=== PATIENT | male | born 1965 | race Caucasian/White ===

== ENCOUNTER 2020-09-03 17:13 | Emergency (ER) | payer OTHER, SELFPAY ==
--- NOTE | ~2020-09-03 | CT_ITS ---
EXAMINATION: CT ABDOMEN AND PELVIS WITHOUT CONTRAST CLINICAL INFORMATION: Right flank pain. History of kidney stones. COMPARISON: Previous CT of the abdomen and pelvis June 2006 TECHNIQUE: Multidetector volumetric imaging was performed from the superior aspect of the liver through the pubic symphysis. Sagittal and coronal reformatted images were obtained on the technologist's workstation. This CT examination was performed using dose optimization techniques as appropriate, variously including the following: *Automated exposure control *Adjustment of mA and/or kV according to patient size (this includes techniques or standardized protocols for targeted exams where dose is matched to indication/reason for exam; i.e. extremities or head) *Use of iterative reconstruction technique DLP: 1189 mGy-cm FINDINGS: LUNG BASES: The visualized lung bases are unremarkable. LIVER, GALLBLADDER, AND BILIARY TREE: The liver is low in attenuation suggestive of fatty infiltration. The liver appears cirrhotic with hypertrophy of the left lobe and caudate lobe and irregular contour. The gallbladder is slightly enlarged. No gallstones are seen. There is no biliary duct dilatation. There are varices. PANCREAS: Unremarkable. SPLEEN: Unremarkable. ADRENAL GLANDS: Unremarkable. KIDNEYS AND URETERS: The kidneys are normal in size, shape, and attenuation. No hydronephrosis, hydroureter, or calculi seen. No perinephric stranding. BLADDER: There may be mild diffuse bladder wall thickening. GASTROINTESTINAL TRACT: The small and large bowel are unremarkable. The appendix is unremarkable. ABDOMINAL WALL: There is an umbilical hernia containing fat and varices. LYMPH NODES: Normal. VASCULAR: Unremarkable. PELVIC VISCERA: Unremarkable. OSSEOUS STRUCTURES: There are degenerative changes of the spine. There is ankylosis the L4-L5 disc space. CT/CT abdomen pelvis wo con IMPRESSION: Fatty liver and changes of cirrhosis. Varices. Slightly dilated gallbladder. No gallstone seen. If there is clinical concern of cholecystitis, ultrasound or HIDA scan would be recommended. No stone seen.
[2020-09-03 18:02] VITALS: BP 136/76; PULSE 89; RESP 18; TEMP 36.7; O2SAT 95; BMI 42.3
[2020-09-03 18:54] LABS: Hemoglobin 13.6 g/dl (14.0-18.0); Mean Corpuscular Hemoglobin 30.7 pg (27.0-33.0); Mean Corpuscular Volume 90.3 fL (80-98); Mean Platelet Volume 9.6 fL (9.4-12.4); Platelet Count 106 X10*3/uL (160-400); Red Blood Count 4.43 X10*6/uL (4.60-5.80); Red Cell Distribution Width 12.7 % (11.0-16.0); White Blood Count 6.7 X10*3/uL (4.8-10.8)
--- NOTE | 2020-09-03 19:00 | ED_ITS ---
HPI - Abdominal Pain General Chief Complaint: Abdominal Pain Stated Complaint: Lower back pain Time Seen by Provider: 09/03/20 18:59 Source: patient Mode of arrival: ambulatory Limitations: no limitations History of Present Illness HPI narrative: patient history of kidney stone more than 5 years ago noticed pain in the right flank for last 1 week constant pain with intermittent worsening pain sharp in character radiating to right lower back no abdominal pain no testicular pain no hematuria no fever or chills no nausea vomiting no diarrhea patient does have chronic back problems he did not do any strenuous act ivity Related Data Previous Rx's Medication Instructions Recorded cyclobenzaprine 10 mg PO Q8H #20 tab 09/03/20 oxycodone 5 mg PO Q6H PRN #20 tab 09/03/20 Allergies Allergy/AdvReac Type Severity Reaction Status Date / Time morphine [MORPHINE] Allergy Unknown HIVES Unverified 11/21/19 15:13 Review of Systems Review of Systems Constitutional : No Weight loss, No Fever, No Chills ENT/Mouth : No sore throat, No Rhinorrhea Eyes: No Eye Pain, No Swelling Cardiovascular : No Chest Pain, no palpitations Respiratory : No Cough, No Sputum, no shortness of breath Gastrointestinal : no Nausea, No Vomiting, No Diarrhea, No abdominal Pain, no black stools Genitourinary : No Dysuria, No Urinary Frequency Musculoskeletal : No joint pain, No Myalgias, No Joint Swelling Skin : No Skin Lesions, No rash Neuro : No Weakness, No Numbness, No Dizziness, No Headache Psych : No Anxiety/Panic, No Depression Heme/Lymph: No Bruising, No Lymphadenopathy Endocrine : No Polyuria, No Polydipsia All other systems reviewed and are negative Physical Exam Vital Signs: Vital Signs: Last Vital Signs Temp 98.1 F 09/03/20 18:02 Pulse 89 09/03/20 18:02 Resp 18 09/03/20 18:02 BP 136/76 09/03/20 18:02 Pulse Ox 95 09/03/20 18:02 Body Mass Index 42.3 Appearance: Alert. Oriented X3. No acute distress. Eyes: PERRLA, No Nystagmus ENT: Pharynx normal. Oral Mucosa moist Neck: Normal inspection. Neck supple. CVS: Normal heart rate and rhythm. Pulses normal. Respiratory: No respiratory distress. Equal air entry bilateral, no wheezing/rales/rhonchi Abdomen: Soft and nontender. tenderness in the right flank area no focal spinal tenderness Bowel sounds are present, no mass palpable,R CVA tenderness+ Back: diffuse lumbar spine tenderness no focal point tenderness SLR negative bilateral Skin: Skin warm and dry. Normal skin color. Normal skin turgor. Extremities: No lower extremity edema. No calf tenderness Neuro: Oriented X 3. No motor deficit. No sensory deficit.No cerebellar signs , cranial nerves II-XII intact MDM - Abdominal Pain MDM Narrative Medical decision making narrative: patient with right flank pain workup is negative for any kidney stone CT scan negative labs are stable pain likely musculoskeletal radiating from chronic low back pain Lab Data Attestation: I reviewed the patient's lab results. Result diagrams: 09/03/20 18:45 09/03/20 18:45 Labs: Lab Results 09/03/20 09/03/20 09/03/20 Range/Units 18:45 18:45 19:36 WBC 6.7 (4.8-10.8) X10*3/uL RBC 4.43 L (4.60-5.80) X10*6/uL Hgb 13.6 L (14.0-18.0) g/dl Hct 40.0 L (42-52) % MCV 90.3 (80-98) fL MCH 30.7 (27.0-33.0) pg MCHC 34.0 (31.0-36.0) g/dl RDW 12.7 (11.0-16.0) % Plt Count 106 L (160-400) X10*3/uL MPV 9.6 (9.4-12.4) fL Absolute Nucleated RBC 0.000 (0.0-0.012) X10*3/uL Nucleated RBC % (auto) 0.0 (0.0-0.2) /100WBC Sodium 136 (135-145) mmol/L Potassium 4.2 (3.3-5.1) mmol/L Chloride 101 (96-108) mmol/L Carbon Dioxide 24 (22-29) mmol/L Anion Gap 15 (12-20) BUN 6 L (9-16) mg/dL Creatinine 0.85 (0.5-1.4) mg/dL Estim Creat Clear Calc 155.2 Estimated GFR > 60 Random Glucose 93 (60-115) mg/dL Calcium 9.2 (8.4-10.2) mg/dL Urine Color YELLOW Urine Appearance CLEAR Urine pH 6.0 (5.0-8.0) Ur Specific [place] <= 1.005 (1.005-1.025) Urine Protein NEG (NEG-TRACE) MG/DL Urine Glucose (UA) NEG (NEG) MG/DL Urine Ketones NEG (NEG) MG/DL Urine Blood TRACE (NEG) Urine Nitrite NEG (NEG) Ur Leukocyte Esterase TRACE H (NEG) Urine RBC 1-4 (0) /HPF Urine WBC 5-9 H (0-4) /HPF Ur Squamous Epith Cells NONE /LPF Urine Bacteria TRACE /LPF Discharge Plan Discharge Clinical Impression: Back pain Patient Disposition: Home, Self-Care Instructions: Back Pain (ED) Additional Instructions: take pain medication and muscle relaxant as advised. bala do not have any kidney stone. Report to ER if any worsening of pain Prescriptions: New cyclobenzaprine 10 mg tablet 10 mg PO Q8H Qty: 20 RF: 0 oxycodone 5 mg tablet 5 mg PO Q6H PRN (Reason: Pain (Scale Score 7-10)) Qty: 20 RF: 0 Interventions: ED Discharge Assessment Last Done: 09/03/20 21:14 Discharge Date/Time: 09/03/20 21:00 [facility] Past Medical History Medical History Kidney stones Surgical History H/O neck surgery History of bilateral knee replacement Social History Social History Patient Tobacco Use Status: Never used Tobacco Use of substances other than those prescribed or required for medical reasons: No Advance Directives: No Advance Directives Information Provided: Yes
[2020-09-03 19:19] LABS: Anion Gap 15 (12-20); Blood Urea Nitrogen 6 mg/dL (9-16); Calcium 9.2 mg/dL (8.4-10.2); Carbon Dioxide 24 mmol/L (22-29); Chloride 101 mmol/L (96-108); Creatinine Clr Calc Pharmacy 155.2; Estimated Glomerular Filt Rate > 60; Glucose Random 93 mg/dL (60-115); Potassium 4.2 mmol/L (3.3-5.1); Sodium 136 mmol/L (135-145)
[2020-09-03 19:51] LABS: Glucose Urine UA NEG (NEG); Leukocyte Esterase Urine TRACE (NEG); Nitrite Urine NEG (NEG); Specific Gravity - Urine <= 1.005 (1.005-1.025); UACC Culture Trigger YES; Urine Blood TRACE (NEG); Urine Ketones NEG (NEG); Urine Protein NEG (NEG-TRACE)
[2020-09-03] MEDS: 0.9 % Sodium Chloride 1,000 ML 999 ML IVCONT (19:54)
[2020-09-03] MEDS: Ketorolac Tromethamine 30 MG/ML VIAL IVPUSH (19:54)
[2020-09-03 19:56] LABS: Appearance Urine CLEAR; Color Urine YELLOW
[2020-09-03 20:04] LABS: Bacteria Urine TRACE /LPF
[2020-09-03] MEDS: Cyclobenzaprine HCl 10 MG TABLET PO (21:05)
[2020-09-03] MEDS: oxyCODONE HCl Immed Release 5 MG TABLET 10 MG PO (21:05)
== END 2020-09-03 21:00 | disposition home or self-care (01) ==
PROVIDERS: Emergency Provider Internal Medicine
DX: M54.5 Low back pain (principal); Z87.442 Personal history of urinary calculi
CPT/HCPCS: 36415; 74176; 80048; 81001; 81003; 85027; 87086; 96361; 96374; 99284; J1885

== ENCOUNTER 2021-05-03 11:44 | Emergency (ER) | payer OTHER, SELFPAY ==
--- NOTE | ~2021-05-03 | CT_ITS ---
EXAMINATION: CT ANGIOGRAM CHEST CLINICAL INFORMATION: Chest pain COMPARISON: Chest x-ray 04/25/2021 TECHNIQUE: Multiple axial images were obtained through the chest after the administration of 70 mL of Omnipaque 350 intravenous contrast. Extensive vascular post-processing including two-dimensional and three-dimensional reformatted images were created and reviewed on an independent workstation. This CT examination was performed using dose optimization techniques as appropriate, variously including the following: *Automated exposure control *Adjustment of mA and/or kV according to patient size (this includes techniques or standardized protocols for targeted exams where dose is matched to indication/reason for exam; i.e. extremities or head) *Use of iterative reconstruction technique DLP: 547 mGy-cm FINDINGS: Vascular: There is good opacification of pulmonary artery and its branches without any intraluminal filling defect or narrowing. The thoracic aorta is of normal caliber. There is normal three-vessel branching of the aortic arch. Mediastinum: The thyroid lobes are symmetrical and normal. No abnormal size mediastinal mass or lymphadenopathy seen. There is no pericardial effusion. There is trace coronary artery calcifications present. Central trachea and the bronchi widely patent. No abnormal size mediastinal or hilar lymph nodes seen. LUNGS: Both lungs are fairly well expanded without any acute pneumonic consolidation. There is a 2 mm nodule right lower lobe peripherally based image 288/6. No additional pulmonary nodules, mass or groundglass density seen. There is no atelectasis. Pleura: There is no pleural calcification, thickening or effusion. Axilla: There small scattered shotty bilateral axillary lymph nodes. The chest wall appears unremarkable. Upper abdomen: Visualized spleen, pancreas, bilateral adrenal glands and the gallbladder appears unremarkable. The liver contour is lobulated with mild heterogeneity of the liver compression stenosis. CT/CT angio chest aorta IMPRESSION: No evidence of PE. No evidence aortic dissection or aneurysm. No acute pneumonic process. There is a small 2 mm nodule in right lower lobe. Fleischner guidelines were followed.
--- NOTE | ~2021-05-03 | XR_ITS ---
EXAMINATION: XR CHEST CLINICAL INFORMATION: Left anterior chest pain. COMPARISON: Chest 05/03/2021 TECHNIQUE: Frontal view of the chest was obtained. FINDINGS: There is elevation of right hemidiaphragm. The lungs are expanded with no acute pneumonic process seen. The heart size is normal. There is prominent central vasculature question mild congestion. There is no pleural effusion seen. No gross bony abnormality. There is lower cervical ventral fusion with hardware in place. XR/XR chest 1V IMPRESSION: Elevated right hemidiaphragm without acute process. Prominent central vasculature
[2021-05-03 11:46] VITALS: BP 158/72; PULSE 83; RESP 18; TEMP 36.6; O2SAT 98; BMI 44.4
--- NOTE | 2021-05-03 11:46 | ECG_ITS ---
Test Reason : CHEST PAIN Blood Pressure : / mmHG Vent. Rate : 082 BPM Atrial Rate : 082 BPM P-R Int : 182 ms QRS Dur : 100 ms QT Int : 400 ms P-R-T Axes : 067 059 047 degrees QTc Int : 467 ms Normal sinus rhythm Normal ECG No previous ECGs available Referred By: Generic ED Physician Electronically Signed By:Felipe Watson
--- NOTE | 2021-05-03 12:09 | ED.CHESTPAIN ---
HPI - Chest Pain General Chief Complaint: Chest Pain Stated Complaint: chest pain Time Seen by Provider: 05/03/21 12:09 Source: patient Mode of arrival: ambulatory Limitations: no limitations History of Present Illness complaint: chest pain Onset (ago): hour(s) (5 am today) Timing of current episode: constant Prior episodes: Yes Onset: during rest Pain location: left chest Pain radiation: left arm Severity: moderate Quality: sharp Relieving factors: nothing Exacerbating factors: movement Context: other (reports he did shovel this week) Associated symptoms: diaphoresis Treatment prior to arrival: aspirin (81mg) Related Data Previous Rx's Medication Instructions Recorded cyclobenzaprine 10 mg tablet 10 mg PO Q8H #20 tab 09/03/20 oxycodone 5 mg tablet 5 mg PO Q6H PRN #20 tab 09/03/20 Allergies Allergy/AdvReac Type Severity Reaction Status Date / Time morphine [MORPHINE] Allergy Unknown HIVES Unverified 11/21/19 15:13 Review of Systems Review of Systems: Constitutional : No Weight loss, No Fever, No Chills, pos diaphoresis ENT/Mouth : No sore throat, No Rhinorrhea Eyes: No Eye Pain, No Swelling Cardiovascular : pos Chest Pain, no SOB, no Dyspnea on Exertion, No Orthopnea, No Edema, No Palpitations Respiratory : No Cough, No Sputum Gastrointestinal : no Nausea, No Vomiting, No Diarrhea, No abdominal Pain, No Hematochezia, No Melena Genitourinary : No Dysuria, No Urinary Frequency Musculoskeletal : No joint pain, No Myalgias, No Joint Swelling Skin : No Skin Lesions, No rash Neuro : No Weakness, No Numbness, No Dizziness, No Headache Psych : No Anxiety/Panic, No Depression Heme/Lymph: No Bruising, No Lymphadenopathy Endocrine : No Polyuria, No Polydipsia All other systems reviewed and are negative [facility] Past Medical History Attestation statement: The following information was validated with the patient. Medical History (Updated 05/03/21 @ 13:53 by Genny Gustafson DO) Chronic pain Kidney stones Surgical History H/O neck surgery History of bilateral knee replacement Social History Social History Patient Tobacco Use Status: Never used Tobacco Advance Directives: No Advance Directives Information Provided: No Physical Exam Vital Signs: Vital Signs: Last Vital Signs Temp 98.7 F 05/03/21 13:04 Pulse 73 05/03/21 13:04 Resp 14 05/03/21 13:04 BP 141/64 H 05/03/21 13:04 Pulse Ox 97 05/03/21 13:04 BMI result Body Mass Index 44.4 Appearance: Alert. Oriented X3. No acute distress. Eyes: Pupils equal, round and reactive to light. ENT: Pharynx normal. Neck: Normal inspection. Neck supple. CVS: Normal heart rate and rhythm. Pulses normal. Chest: ttp along L pectoralis muscle - distal NV intact Respiratory: No respiratory distress. Breath sounds normal. Abdomen: Soft and nontender. Skin: Skin warm and dry. Normal skin color. Normal skin turgor. Extremities: No lower extremity edema. No calf ttp Neuro: Oriented X 3. No motor deficit. No sensory deficit. Course Course Course Narrative: aorta appears wide on CXR - CTA ordered for dissection EKG and troponin flat at 7 hours of symptoms wants to leave prior to his CTA result due to ride issue and needing to make a meeting - states he is going to leave AMA at this time. He is alert and oriented x 3 answering questions appropriately. MDM - Chest Pain MDM Narrative Medical decision making narrative: 56 yo male with hx of chronic pain on methadone notes he was shoveling this weekend and now has L sided chest pain that hurts when he moves - pain is reproduceable he has no tachycardia, hypoxia or signs of DVT to suggest PE - at this time pain since 5am will obtain basic labs, troponin x 1, EKG, CXR, adamantly denies any substance ingestion or IVDA. Dispo per results and fidnings. Lab Data Result diagrams: 05/03/21 12:51 05/03/21 12:51 Labs: Lab Results 05/03/21 05/03/21 05/03/21 Range/Units 12:51 12:51 12:51 WBC 6.3 (4.8-10.8) X10*3/uL RBC 4.43 L (4.60-5.80) X10*6/uL Hgb 13.4 L (14.0-18.0) g/dl Hct 38.8 L (42.0-52.0) % MCV 87.6 (80.0-98.0) fL MCH 30.2 (27.0-33.0) pg MCHC 34.5 (31.0-36.0) g/dl RDW 13.0 (11.0-16.0) % Plt Count 91 L (160-400) X10*3/uL MPV 9.3 L (9.4-12.4) fL Immature Gran % (Auto) 0.3 (0.0-0.4) % Neut % (Auto) 79.7 H (45-73) % Lymph % (Auto) 13.3 L (20-40) % [place] % (Auto) 6.4 (2-11) % Eos % (Auto) 0.0 (0-4) % Baso % (Auto) 0.3 (0-2) % Lymph # (Auto) 0.8 L (1.2-4.9) X10*3/uL [place] # (Auto) 0.4 (0.1-1.2) X10*3/uL Eos # (Auto) 0.0 (0.0-0.4) X10*3/uL Baso # (Auto) 0.0 (0.0-0.2) X10*3/uL Abs Immat Gran (auto) 0.02 (0.00-0.03) X10*3/uL Absolute Neuts (auto) 5.0 (2.0-8.3) x10*3/uL Absolute Nucleated RBC 0.000 (0.0-0.012) X10*3/uL Nucleated RBC % (auto) 0.0 (0.0-0.2) /100WBC PT 11.9 (9.9-13.0) SEC INR 1.0 (0.9-1.1) Sodium 133 L (135-145) mmol/L Potassium 4.2 (3.3-5.1) mmol/L Chloride 98 (96-108) mmol/L Carbon Dioxide 25 (22-29) mmol/L Anion Gap 14 (12-20) BUN 8 L (9-16) mg/dL Creatinine 0.83 (0.5-1.4) mg/dL Estim Creat Clear Calc 143.9 Estimated GFR > 60 Random Glucose 114 (60-115) mg/dL Calcium 9.0 (8.4-10.2) mg/dL Magnesium 1.8 (1.6-2.6) mg/dL Troponin I High Sens (<3.5-35.0) ng/L COVID-19 ([facility]) (Negative) COVID-19 Clin Com 05/03/21 05/03/21 Range/Units 12:51 13:03 WBC (4.8-10.8) X10*3/uL RBC (4.60-5.80) X10*6/uL Hgb (14.0-18.0) g/dl Hct (42.0-52.0) % MCV (80.0-98.0) fL MCH (27.0-33.0) pg MCHC (31.0-36.0) g/dl RDW (11.0-16.0) % Plt Count (160-400) X10*3/uL MPV (9.4-12.4) fL Immature Gran % (Auto) (0.0-0.4) % Neut % (Auto) (45-73) % Lymph % (Auto) (20-40) % [place] % (Auto) (2-11) % Eos % (Auto) (0-4) % Baso % (Auto) (0-2) % Lymph # (Auto) (1.2-4.9) X10*3/uL [place] # (Auto) (0.1-1.2) X10*3/uL Eos # (Auto) (0.0-0.4) X10*3/uL Baso # (Auto) (0.0-0.2) X10*3/uL Abs Immat Gran (auto) (0.00-0.03) X10*3/uL Absolute Neuts (auto) (2.0-8.3) x10*3/uL Absolute Nucleated RBC (0.0-0.012) X10*3/uL Nucleated RBC % (auto) (0.0-0.2) /100WBC PT (9.9-13.0) SEC INR (0.9-1.1) Sodium (135-145) mmol/L Potassium (3.3-5.1) mmol/L Chloride (96-108) mmol/L Carbon Dioxide (22-29) mmol/L Anion Gap (12-20) BUN (9-16) mg/dL Creatinine (0.5-1.4) mg/dL Estim Creat Clear Calc Estimated GFR Random Glucose (60-115) mg/dL Calcium (8.4-10.2) mg/dL Magnesium (1.6-2.6) mg/dL Troponin I High Sens < 3.5 (<3.5-35.0) ng/L COVID-19 ([facility]) Negative (Negative) COVID-19 Clin Com See Note ECG Data ECG #1: Attestation: I personally reviewed and interpreted this ECG as follows: ECG interpretation date: 05/03/21 ECG interpretation time: 12:14 Interpretation: Rate: 82 Rhythm: NSR [place]: normal Normal P waves. Normal JENNIE. Normal QRS complex. ST T wave : normal no MARLENA qTC: normal prior studies: no acute ischemia The study has been interpreted contemporaneously by me. . Discharge Plan Discharge Clinical Impression: Chest pain Qualifiers: Chest pain type: precordial pain Qualified Code(s): R07.2 - Precordial pain Patient Disposition: Left Against Medical Advice Instructions: Chest Pain (ED), Against Medical Advice (ED) Additional Instructions: return to ED for any worsening symptoms or concerns you left prior to the results of your chest CT being read your EKG and initial heart markes were normal please find a primary care if this continues you will need a stress test Prescriptions: No Action cyclobenzaprine 10 mg tablet 10 mg PO Q8H Qty: 20 0RF oxycodone 5 mg tablet 5 mg PO Q6H PRN (Reason: Pain (Scale Score 7-10)) Qty: 20 0RF Interventions: ED Discharge Assessment Last Done: 05/03/21 14:05 Discharge Date/Time: 05/03/21 14:07
[2021-05-03] MEDS: Cyclobenzaprine HCl 10 MG TABLET PO (12:39)
[2021-05-03] MEDS: Aspirin 81 MG TAB.CHEW PO (12:39)
[2021-05-03] MEDS: Acetaminophen 325 MG TABLET 650 MG PO (12:39)
[2021-05-03 12:55] LABS: MANUAL DIFF FLAG NO
[2021-05-03 12:58] LABS: Basophils Percent Auto 0.3 % (0-2); Hematocrit 38.8 % (42.0-52.0); Hemoglobin 13.4 g/dl (14.0-18.0); Imm Gran Abs Auto 0.02 X10*3/uL (0.00-0.03); Imm Gran Pct Auto 0.3 % (0.0-0.4); Lymphocytes Absolute Auto 0.8 X10*3/uL (1.2-4.9); Lymphocytes Percent Auto 13.3 % (20-40); Mean Corpuscular HGB Conc 34.5 g/dl (31.0-36.0); Mean Corpuscular Hemoglobin 30.2 pg (27.0-33.0); Mean Corpuscular Volume 87.6 fL (80.0-98.0); Mean Platelet Volume 9.3 fL (9.4-12.4); Monocytes Absolute Auto 0.4 X10*3/uL (0.1-1.2); Monocytes Percent Auto 6.4 % (2-11); Neutrophils Percent Auto 79.7 % (45-73); Platelet Count 91 X10*3/uL (160-400); Red Blood Count 4.43 X10*6/uL (4.60-5.80); White Blood Count 6.3 X10*3/uL (4.8-10.8)
[2021-05-03] MEDS: iohexoL 350 MG/ML 100 ML INFUS..BTL IV (13:02)
[2021-05-03 13:04] VITALS: BP 141/64; PULSE 73; RESP 14; TEMP 37.1; O2SAT 97
[2021-05-03 13:05] LABS: Prothrombin Time 11.9 SEC (9.9-13.0)
[2021-05-03 13:14] LABS: Anion Gap 14 (12-20); Blood Urea Nitrogen 8 mg/dL (9-16); Carbon Dioxide 25 mmol/L (22-29); Chloride 98 mmol/L (96-108); Creatinine Clr Calc Pharmacy 143.9; Estimated Glomerular Filt Rate > 60; Glucose Random 114 mg/dL (60-115); Magnesium 1.8 mg/dL (1.6-2.6); Potassium 4.2 mmol/L (3.3-5.1); Sodium 133 mmol/L (135-145)
[2021-05-03 13:18] LABS: Troponin-I High Sensitivity < 3.5 ng/L (<3.5-35.0)
[2021-05-03 13:29] LABS: COVID-19 Test Negative (Negative)
== END 2021-05-03 14:07 | disposition left against medical advice (07) ==
PROVIDERS: Emergency Provider Emergency Medicine
DX: R07.2 Precordial pain (principal); Z20.822 Contact with and (suspected) exposure to COVID-19; G89.29 Other chronic pain; Z79.891 Long term (current) use of opiate analgesic
CPT/HCPCS: 36415; 71045; 71275; 80048; 83735; 84484; 85025; 85610; 87635; 93005; 99284; Q9967

== ENCOUNTER 2021-08-15 12:37 | Emergency (ER) | payer OTHER, SELFPAY ==
[2021-08-15 13:14] VITALS: BP 147/75; PULSE 85; RESP 18; TEMP 37.1; O2SAT 97; BMI 42.3
--- NOTE | 2021-08-15 15:07 | ED.GENADULT ---
HPI - General Adult General Chief complaint: Dental/Oral Stated complaint: dental pain Time Seen by Provider: 08/15/21 15:06 Source: patient Mode of arrival: ambulatory Limitations: no limitations History of Present Illness HPI narrative: Patient is a 56 year old male presenting to the emergency department today with dental pain. Patient states that he has an appointment with [facility] on the of this month to have more of his teeth removed but the pain became unbearable. Patient denies any dizziness, lightheadedness, abdominal pain, nausea, vomiting, fever, chills, blurry vision, double vision, loss of vision, chest pain, difficulty breathing, shortness of breath, back pain, night sweats, pain with urination, increased urinary frequency, increased urinary urgency, blood in his urine or stool, syncope or a near syncopal episode, recent trauma or falls, bowel incontinence, bladder incontinence, bowel retention, bladder retention, or any other complaints at this time. Onset (ago): day(s) Location: mouth Radiation: non-radiation Severity: mild Severity scale (1-10): 3 Quality: dull Pain Consistency: constant Relieving factors: none Exacerbating factors: none Associated symptoms: denies other symptoms Treatments prior to arrival: none Related Data Previous Rx's Medication Instructions Recorded hydrocodone 5 mg-acetaminophen 325 1 tab PO Q4H PRN pain 3 days #7 08/15/21 mg tablet tabs penicillin V potassium 500 mg 500 mg PO BID 10 days #20 tabs 08/15/21 tablet Allergies Allergy/AdvReac Type Severity Reaction Status Date / Time morphine [MORPHINE] Allergy Unknown HIVES Unverified 11/21/19 15:13 Review of Systems Constitutional: Constitutional: Reports no additional constitutional complaints, Denies chills, Denies fever(s) and Denies night sweats Eyes: Eyes: Reports no additional eye complaints, Denies blurry vision, Denies change in vision, Denies diplopia, Denies eye discharge, Denies loss of vision and Denies eye pain ENT: Denies dizziness Comments: dental pain Cardiovascular: Cardiovascular: Reports no additional cardiovascular complaints, Denies chest pain, Denies lightheadedness, Denies Loss of Consciousness and Denies dyspnea Respiratory: Respiratory: Reports no additional respiratory complaints and Denies dyspnea Gastrointestinal: Gastrointestinal: Reports no additional gastrointestinal complaints, Denies abdominal pain, Denies melena, Denies hematochezia, Denies change in bowel habits and Denies change in stool character Genitourinary: Genitourinary: Reports no additional male genitourinary complaints, Denies hematuria, Denies oliguria, Denies difficulty urinating, Denies dysuria, Denies urinary frequency, Denies urinary hesitancy, Denies urinary incontinence and Denies urinary urgency Musculoskeletal: Musculoskeletal: Reports no additional musculoskeletal complaints, Denies numbness and Denies tingling Neurologic: Denies dizziness, Denies loss of vision, Denies numbness and Denies tingling Psychiatric: Psychiatric: Reports no additional psychiatric complaints Endocrine: Endocrine: Reports no additional endocrine complaints Hematologic/Lymphatic: Hematologic/Lymphatic: Reports no additional hematologic/lymphatic complaints Allergic/Immunologic: Allergic/Immunologic: Reports no additional allergic/immunologic complaints PMFSH Past Medical History Attestation statement: The following information was validated with the patient. Source: old records reviewed Medical History Chronic pain Kidney stones Surgical History H/O neck surgery History of bilateral knee replacement Social History Social History Patient Tobacco Use Status: Never used Tobacco Advance Directives: No Advance Directives Information Provided: No Physical Exam ED Vital Signs: Vital Signs - 24 hr 08/15/21 13:14 Temperature 98.7 F Pulse Rate 85 Respiratory Rate 18 Blood Pressure 147/75 H Pulse Oximetry 97 Oxygen Delivery Method Room Air BMI result Body Mass Index 42.3 Const General: cooperative, no acute distress, alert and awake Nutritional Appearance: well nourished Orientation/consciousness: patient oriented x3 Limitations: no limitations [facility] Head: Yes normal to inspection and Yes atraumatic Ears: hearing grossly normal bilaterally and external ears normal General nose exam: Normal external nose present, no nasal discharge noted and no epistaxis Face and sinus: Yes normal facial exam, No abrasion and No laceration Mouth: Normal oral and palatal mucosa present, no drooling and no muffled voice Teeth and gingiva: poor dentition Eyes General: appearance normal, both eyes and all related structures Periorbital: periorbital findings normal Eyelids: Yes eyelids normal Conjunctivae: conjunctivae normal Pupils: Equal, round and reactive pupils present EOM: EOMs intact bilaterally Neck Neck: Yes normal visual inspection, Yes full ROM and Yes no lymphadenopathy Chest Chest palpation & inspection: normal inspection of the chest Resp Effort & Inspection: normal respiratory effort and able to speak in complete sentences Auscultation: clear to auscultation bilaterally Cardio Rate: regular rate Rhythm: regular rhythm GI Inspection: Yes normal to inspection Neuro General: patient oriented x3 and moves all extremities Cranial nerves: Yes Equal, round and reactive pupils present Cognition (Neuro): normal cognition Motor exam (neuro): 5/5 motor strength present throughout Sensory Exam: Normal double simultaneous stimulation for sensation Coordination: poclqb-me-liol test normal Extrem General: Yes normal to inspection, Yes full ROM and Yes capillary refill normal Psych Appearance: grossly normal Mental Status: mental status grossly normal Affect: normal affect Attitude: cooperative Thought process: Normal thought process present Thought content: Normal thought content present Insight: Good insight present (Psych) Medical Decision Making MDM Narrative Medical decision making narrative: Patient is a 56 year old male presenting to the emergency department today with dental pain. Patient's physical exam showed extensive poor dentition and erythema but no obvious area of fluctuance. I explained my physical exam findings to the patient. I answered all questions asked by the patient. Patient received PO Sawyer which he stated helped his pain significantly. I stressed the importance of the patient taking his medication as prescribed. I stressed the importance of the patient following up with his primary care provider and a dentist. I stressed the importance of the patient returning to the emergency department immediately if his symptoms were to worsen or if he were to develop any dizziness, shortness of breath, difficulty breathing, chest pain, blurry vision, loss of vision, nausea, vomiting, abdominal pain, fever, chills, back pain, or any other complaints. Patient erbalized agreement and understanding with this treatment plan and discharge. Differential Diagnosis Differential Diagnosis: dental caries, dental abscess Medical Records Medical records reviewed: Yes I reviewed the patient's medical records. Discharge Plan Discharge Clinical Impression: Toothache, Dental caries, Dental abscess Patient Disposition: Home, Self-Care Instructions: Dental Abscess (ED) Additional Instructions: Follow up with your primary care provider and a dentist. Return to the emergency department immediately if your symptoms worsen or if you develop any dizziness, shortness of breath, difficulty breathing, chest pain, blurry vision, loss of vision, nausea, vomiting, abdominal pain, fever, chills, back pain, or any other complaints. Call or visit any of the clinics below to establish with a dentist: [facility] [address] [place] [address] [facility] [address] [facility], [address] [address] [place] [address] [facility] [address] [facility] [address] [place] [address] [facility] [address] [place] [address] [address] [place] [address] Prescriptions: New penicillin V potassium 500 mg tablet 500 mg PO BID 10 Days Qty: 20 0RF hydrocodone-acetaminophen 5-325 mg tablet 1 tab PO Q4H PRN (Reason: pain) 3 Days Qty: 7 0RF Rx Instructions: Partial Fill upon patient request. Discontinued cyclobenzaprine 10 mg tablet 10 mg PO Q8H Qty: 20 0RF oxycodone 5 mg tablet 5 mg PO Q6H PRN (Reason: Pain (Scale Score 7-10)) Qty: 20 0RF Referrals: [facility] [place] Family Medicine [Provider Group] (Call to establish with a primary care provider. If you have a primary care provider, please call and follow up with them.) [facility] Primary [facility] [Provider Group] (Call to establish with a primary care provider. If you have a primary care provider, please call and follow up with them.) [facility] Primary Care,Ramy [Provider Group] (Call to establish with a primary care provider. If you have a primary care provider, please call and follow up with them.) Interventions: ED Discharge Assessment Last Done: 08/15/21 15:23 Discharge Date/Time: 08/15/21 15:23 Print Language: Citizen Of [place]
[2021-08-15] MEDS: HYDROcodone Bit/Acetam 5/325 TABLET 1 TAB PO (15:18)
== END 2021-08-15 15:23 | disposition home or self-care (01) ==
PROVIDERS: Emergency Provider Emergency Medicine
DX: K04.7 Periapical abscess without sinus (principal); K02.9 Dental caries, unspecified
CPT/HCPCS: 99283

== ENCOUNTER 2023-01-24 16:48 | Emergency (ER) | payer OTHER, SELFPAY ==
--- NOTE | ~2023-01-24 | XR_ITS ---
Examination: XR ankle RT min 3V, XR foot RT min 3V Indication: pain s/p fall Comparison: No pertinent prior studies are currently available for comparison. Technique: 2 views of the right ankle with 3 additional views of the right foot and ankle obtained Findings: Right ankle: Mild soft tissue swelling is seen about the ankle more so medially. Underlying bony structures appear intact with no acute fracture dislocation. Tiny ossifications and degenerative appearing changes are noted. Ankle mortise is intact. Right foot: Bones are normal anatomic alignment with no acute fracture or dislocation. Degenerative changes are seen more so in the first MTP joint and within the midfoot bones. Mild soft tissue swelling diffusely but no radiopaque foreign body or soft tissue gas. XR/XR ankle RT min 3V Impression: Degenerative and chronic appearing changes but no acute fracture or dislocation seen.
--- NOTE | ~2023-01-24 | XR_ITS ---
Examination: XR ankle RT min 3V, XR foot RT min 3V Indication: pain s/p fall Comparison: No pertinent prior studies are currently available for comparison. Technique: 2 views of the right ankle with 3 additional views of the right foot and ankle obtained Findings: Right ankle: Mild soft tissue swelling is seen about the ankle more so medially. Underlying bony structures appear intact with no acute fracture dislocation. Tiny ossifications and degenerative appearing changes are noted. Ankle mortise is intact. Right foot: Bones are normal anatomic alignment with no acute fracture or dislocation. Degenerative changes are seen more so in the first MTP joint and within the midfoot bones. Mild soft tissue swelling diffusely but no radiopaque foreign body or soft tissue gas. XR/XR foot RT min 3V Impression: Degenerative and chronic appearing changes but no acute fracture or dislocation seen.
--- NOTE | ~2023-01-24 | CT_ITS ---
EXAMINATION: CT HEAD WITHOUT CONTRAST CT CERVICAL SPINE WITHOUT CONTRAST CLINICAL INFORMATION: 57-year-old male status post fall COMPARISON: CT head from 03/26/2012 TECHNIQUE: Contiguous axial imaging was performed from the skull base to vertex without intravenous administration of contrast. Contiguous axial imaging was performed from the upper chest through the skull base without intravenous administration of contrast. Coronal and sagittal reformats were obtained at the acquisition workstation. This CT examination was performed using dose optimization techniques as appropriate, variously including the following: *Automated exposure control. *Adjustment of mA and/or kV according to patient size (this includes techniques or standardized protocols for targeted exams where dose is matched to indication/reason for exam; i.e. extremities or head). *Use of iterative reconstruction technique. DLP: 919 mGy-cm FINDINGS: Head: There is no evidence of acute intracranial hemorrhage or edematous territorial infarction. Coffey-white matter differentiation is preserved. There is no abnormal attenuation within the brain parenchyma. The ventricles are normal in morphology and size. No evidence for obstructive hydrocephalus. No abnormal mass effect or midline shift. No extra-axial fluid collections. No acute soft tissue or osseous abnormalities. Mastoids are well aerated there is minimal mucosal thickening of left maxillary sinus. Cervical Spine: The atlantooccipital and atlantoaxial articulations remain well aligned. Straightening of the normal cervical lordosis. Patient is status post C6-7 vertebral bodies fusion with anterior hardware. There is anatomical fusion at the level of C3-C4 and degenerative spondylosis.. There is no prevertebral soft tissue swelling. The thyroid gland and remaining cervical soft tissues are within normal limits. The lung apices demonstrate no abnormalities. CT/CT cervical spine wo IV con IMPRESSION: 1. No acute intracranial pathology. 2. No acute cervical abnormalities. 3. Postsurgical fusion at the C6-C7 and fused C3-C4
[2023-01-24 17:20] VITALS: BP 142/79; PULSE 83; RESP 20; TEMP 36.1; O2SAT 97; BMI 41.1
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
[2023-01-24] MEDS: Diphth,Pertus(ACell),Tet Adult 0.5 ML SYRINGE IM (19:12)
[2023-01-24] MEDS: cephALEXin 500 MG CAPSULE 1000 MG PO (19:54)
--- NOTE | 2023-01-24 20:06 | PC.NURSE ---
Patient refusing placement of surgical shoe at this time, states that he will put it on at home and dress his wound at the same time. Provider aware and agrees to plan.
[2023-01-24 20:08] VITALS: BP 138/74; PULSE 87; RESP 18; TEMP 36.4; O2SAT 98
== END 2023-01-24 20:10 | disposition home or self-care (01) ==
PROVIDERS: Emergency Provider Emergency Medicine; PCP Nurse Practitioner Family
DX: S90.411A Abrasion, right great toe, initial encounter (principal); M79.674 Pain in right toe(s); R51.9 Headache, unspecified; M54.2 Cervicalgia; M25.571 Pain in right ankle and joints of right foot; V18.0XXA Pedal cycle driver injured in noncollision transport accident in nontraffic accident, initial encounter; Y93.9 Activity, unspecified; Y92.410 Unspecified street and highway as the place of occurrence of the external cause; Y99.9 Unspecified external cause status; Z79.899 Other long term (current) drug therapy; Z23 Encounter for immunization
CPT/HCPCS: 70450; 72125; 73610; 73630; 90471; 90715; 96372; 99284

== ENCOUNTER 2024-10-06 22:44 | Emergency (ER) | payer OTHER, SELFPAY ==
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
[2024-10-06 23:01] VITALS: BP 136/52; BP 152/82; PULSE 103; PULSE 115; RESP 18; TEMP 37.2; O2SAT 98; BMI 42.4
--- NOTE | 2024-10-06 23:25 | PC.NURSE ---
PT statng Im out of here, I dont have patience for this shit . Notified provider and is at bedside assessing PT. PT agreeable to scan and pain medication
[2024-10-07 02:14] VITALS: BP 138/73; PULSE 105; RESP 20; TEMP 36.7; O2SAT 93
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
[2024-10-07 06:28] VITALS: BP 140/72; PULSE 93; RESP 16; TEMP 36.2; O2SAT 96
== END 2024-10-07 06:29 | disposition home or self-care (01) ==
PROVIDERS: Emergency Provider Emergency Medicine; PCP Nurse Practitioner Family
DX: S00.83XA Contusion of other part of head, initial encounter (principal); S10.93XA Contusion of unspecified part of neck, initial encounter; S00.03XA Contusion of scalp, initial encounter; F10.129 Alcohol abuse with intoxication, unspecified; Y90.9 Presence of alcohol in blood, level not specified; Y00.XXXA Assault by blunt object, initial encounter; Y93.9 Activity, unspecified; Y92.9 Unspecified place or not applicable; Y99.9 Unspecified external cause status
CPT/HCPCS: 70450; 70486; 72125; 99284

== ENCOUNTER → 2024-10-06 23:26 | Outpatient (BNV) | payer OTHER, SELFPAY | PROVIDERS: Emergency Provider Emergency Medicine; PCP Nurse Practitioner Family; Visit Provider Radiology Diagnostic Radiology | DX: M54.2 Cervicalgia (principal); S00.11XA Contusion of right eyelid and periocular area, initial encounter | CPT/HCPCS: 70450; 70486; 72125 ==